=== PATIENT | female | born 1990 | race Asian ===

== ENCOUNTER 2018-09-11 15:37 | Emergency (ER) | payer OTHER ==
[2018-09-11 15:45] VITALS: BP 101/66
== END 2018-09-11 16:46 | disposition left against medical advice (07) ==
LOC: ED 15:37
DX: R10.9 Unspecified abdominal pain (principal); Z53.21 Procedure and treatment not carried out due to patient leaving prior to being seen by health care provider

== ENCOUNTER → 2018-11-15 14:43 | Emergency (ER) | payer OTHER ==
[2018-11-15 16:23] VITALS: BP 101/67
--- NOTE | 2018-11-15 16:59 | ED ---
Abdominal Pain/Female - HPI Summary HPI Summary: Patient is a 28-year-old female presenting to the ED with left lower quadrant pain which was acute onset, lasted approximately 30 minutes and now has since resolved. This occurred approximately 1 hour prior to arrival. She is also endorsing a feeling of intense nausea immediately following the pain, which is also since resolved. She states the pain was so severe, 10/10 that she "passed out." But she does recall the event and states she was able to go to the floor in a position. Symptoms resolved after approximately 20-30 minutes and she denies any pain currently. She states this occurred 2 months ago and she was also seen in the ED at that time. She states a CT scan as well as labs were obtained which were all WNL. When she followed up with her PCP, they ordered a transvaginal ultrasound, however as she was asymptomatic, she did not have this obtained. - History of Current Complaint Chief Complaint: EDAbdPain Stated Complaint: ABD PAIN PER EMS Time Seen by Provider: 11/15/18 14:55 Hx Obtained From: Patient ?: No Onset/Duration: Sudden Onset Timing: Constant Severity Initially: Severe Severity Currently: None Pain Intensity: 1 Pain Scale Used: 0-10 Numeric Location: Discrete At: LLQ Radiates: No Character: Sharp, Burning Aggravating Factor(s): Nothing Alleviating Factor(s): Nothing Associated Signs and Symptoms: Positive: Negative - Risk Factors Ectopic Risk Factor: Negative Ovarian Torsion Risk Factor: Reproductive Age Allergies/Adverse Reactions: Allergies Allergy/AdvReac Type Severity Reaction Status Date / Time No Known Allergies Allergy Verified 11/15/18 14:57 Home Medications: Home Medications NK [No Home Medications Reported] 11/15/18 [History Confirmed 11/15/18] PMH/Surg Hx/FS Hx/Imm Hx Previously Healthy: Yes - Immunization History Hx Pertussis Vaccination: No Immunizations Up to Date: Yes Infectious Disease History: No Infectious Disease History: Denies: Traveled Outside the [place] in Last 30 Days - Social History Occupation: Unemployed, Student Lives: Dormitory/Roommates Alcohol Use: None Hx Substance Use: No Substance Use Type: Reports: None Hx Tobacco Use: No Smoking Status (MU): Never Smoked Tobacco Review of Systems Constitutional: Negative Negative: Fever, Chills, Fatigue, Skin Diaphoresis Negative: Palpitations, Chest Pain Negative: Shortness Of Breath, Cough Positive: Abdominal Pain, Nausea. Negative: Vomiting Genitourinary: Negative Positive: no symptoms reported, see HPI Negative: Arthralgia, Myalgia Neurological: Negative All Other Systems Reviewed And Are Negative: Yes Physical Exam Triage Information Reviewed: Yes Vital Signs On Initial Exam: Initial Vitals Temp Pulse Resp BP Pulse Ox 98.3 F 59 16 111/73 100 11/15/18 14:52 11/15/18 14:52 11/15/18 14:52 11/15/18 14:52 11/15/18 14:52 Vital Signs Reviewed: Yes Appearance: Positive: Well-Appearing, Well-Nourished Skin: Positive: Warm, Skin Color Reflects Adequate Perfusion Head/Face: Positive: Normal Head/Face Inspection Eyes: Positive: EOMI, Conjunctiva Clear Neck: Positive: Supple, No Lymphadenopathy Respiratory/Lung Sounds: Positive: Clear to Auscultation, Breath Sounds Present Cardiovascular: Positive: Pulses are Symmetrical in both Upper and Lower Extremities Abdomen Description: Positive: Nontender, Soft. Negative: CVA Tenderness (R), CVA Tenderness (L), Distended, Guarding, McBurney's Point Tenderness Musculoskeletal: Positive: Strength/ROM Intact Neurological: Positive: Sensory/Motor Intact, Speech Normal Psychiatric: Positive: Affect/Mood Appropriate AVPU Assessment: Alert Diagnostics - Vital Signs Vital Signs Temp Pulse Resp BP Pulse Ox 11/15/18 16:22 98.2 F 60 16 101/67 99 11/15/18 14:52 98.3 F 59 16 111/73 100 - Laboratory Lab Statement: Any lab studies that have been ordered have been reviewed, and results considered in the medical decision making process. Abdominal Pain Fem Course/Dx - Course Course Of Treatment: During the course of treatment, the patient is evaluated for acute left lower quadrant pain and nausea which has since resolved. She states happened 2 months ago also on the first day of her menses. She states she began her menses this morning and same symptoms happen again. On arrival to the ED, she is asymptomatic. Afebrile. Other vital signs are stable. She denies any symptoms at this time. I have discussed treatment options with the patient as well as likely etiologies of her pain. Discussed she may possibly have a ruptured ovarian cyst, however will with her pain now 0/10, ovarian torsion is not likely. This could also be stemming from her menses. She states she will follow-up with them at health as well as I have given her a follow-up to [facility]. Denies any dizziness, fatigue, nausea, abdominal pain at this time. Vital signs are stable. - Diagnoses Differential Diagnosis: Positive: Other - Ovarian cyst, ruptured ovarian cyst, menses, left lower quadrant pain Provider Diagnoses: Abdominal pain Discharge - Sign-Out/Discharge Documenting (check all that apply): Patient Departure Patient Received Moderate/Deep Sedation with Procedure: No - Discharge Plan Condition: Stable Disposition: HOME Patient Education Materials: Ruptured Ovarian Cyst (ED) Referrals: Bhavya Zamora MD [Medical Doctor] - No Primary Care Phys,NOPCP [Primary Care Provider] - Additional Instructions: While we cannot be sure a ruptured cyst is the cause of your discomfort, I have given you information If you develop any worsening symptoms, return to the ED Please follow up with [facility] - Billing Disposition and Condition Condition: STABLE Disposition: Home
== END | disposition home or self-care (01) ==
LOC: ED 14:43
DX: R10.32 Left lower quadrant pain (principal)
CPT/HCPCS: 99282